=== PATIENT | male | born 1965 | race Caucasian/White ===

== ENCOUNTER 2020-09-21 03:58 | Emergency (ER) | payer OTHER ==
[~2020-09-21] VITALS: Ht 185.4 cm; Wt 120.0 kg
[~2020-09-21 03:58] MED LIST: ALBU0.63 NEB; ASPI-496 PO; LORA10CA PO; OLOP5DRO OP; TADA5TAB2 PO
--- NOTE | 2020-09-21 04:27 | NUR ---
TASK RN: PT CAME INTO ED THIS EVENING AFTER WAKING UP AND FEELING SHORT OF BREATH, REPORTS IT IS DIFFICULT TO TAKE A DEEP INHALATION. PT RESP RATE WITHIN NORMAL LIMITS. SPO2 STABLE. 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 PT WAS TESTED FOR COVID AND WAS NEGATIVE 6-7 DAYS AGO. PT REPORTS FATIGUE AND BODY ACHES. PT PLACED ON SPO2/BP/ECG MONITORING. TM
--- NOTE | 2020-09-21 04:40 | NUR ---
patient resting in bed in NAD. call carrillo in reach. Turner FANG at bedside for assessment. Covid swab performed by PA and sent to lab. will continue to monitor.
--- NOTE | 2020-09-21 05:06 | NUR ---
RN requested UA from patient and patient states "i went right before I came. I need more water and then I can" as patient finishes bottle of water at bedside brought from home. call carrillo in reach. safety maintained. will continue to monitor.
[2020-09-21 05:07] LABS: BASOPHILS % (AUTO) 1 % (0-1); EOSINOPHILS % (AUTO) 1 % (1-7); LYMPHOCYTES % (AUTO) 15 % (22-44); MEAN CORPUSCULAR HEMOGLOBIN 27.7 pg (27.5-34.5); MEAN CORPUSCULAR HGB CONC 34.4 g/dL (33.2-36.2); MEAN PLATELET VOLUME 8.1 fL (7.4-10.4); MONOCYTES % (AUTO) 8 % (2-9); NEUTROPHILS % (AUTO) 75 % (42-75); PLATELET COUNT 290 x10^3/uL (130-400); RED BLOOD COUNT 5.53 x10^6/uL (4.38-5.82); RED CELL DISTRIBUTION WIDTH 12.8 % (9.4-14.8)
[2020-09-21 05:09] LABS: MD NO
[2020-09-21 05:12] LABS: ALANINE AMINOTRANSFERASE 19 U/L (12-78); ALBUMIN 3.7 g/dL (3.4-5.0); ANION GAP 10 mmol/L (5-15); CALCIUM 8.7 mg/dL (8.5-10.1); CHLORIDE 106 mmol/L (98-107); CREATININE 1.35 mg/dL (0.7-1.3)
[2020-09-21 05:14] LABS: ALKALINE PHOSPHATASE 83 U/L (45-117); BILIRUBIN,TOTAL 0.5 mg/dL (0.2-1.0); TOTAL PROTEIN 7.4 g/dL (6.4-8.2)
--- NOTE | 2020-09-21 05:19 | NUR ---
additional water given to patient. will re-eval and request UA shortly
--- NOTE | 2020-09-21 05:46 | NUR ---
UA obtained and UA collected and walked to lab by this RN. steady gait to bathroom. mild SOB with return to rest in [facility]. call carrillo in reach. safety maintained
[2020-09-21 05:59] LABS: MICROSCOPIC NOT IND
--- NOTE | 2020-09-21 06:26 | NUR ---
waiting for Ddimer. this lab is delayed as well to result and be added on to already drawn labs. i called lab and spoke with Nubia. lab was ordered 1 hour ago at 0525. she found sample and will run it at this time.
--- NOTE | 2020-09-21 07:05 | NUR ---
REPOTR GIVEN TO IBIS MACIAS
--- NOTE | 2020-09-21 07:25 | NUR ---
PT OFF THE FLOOR FOR CTA
--- NOTE | 2020-09-21 07:34 | NUR ---
PT BACK IN ROOM FROM CTA
[2020-09-21] MEDS ORDERED: OMNIPAQUE 350 MG/ML, 100ML BOTTLE ONE (07:41)
[2020-09-21 08:30] VITALS: BP 152/105
--- NOTE | 2020-09-21 08:38 | NUR ---
PT REC'VD DISCHARGE ISTRUCTIONS AND EDUCATION. PT HAD NO FURTHER QUESTIONS. PT AMBULATED TO DC AREA, STEADY GAIT.
== END 2020-09-21 08:41 | disposition home or self-care (01) ==
LOC: ED 04:29
DX: C43.9 Malignant melanoma of skin, unspecified (principal); Z20.822 Contact with and (suspected) exposure to COVID-19; R05 Cough; R10.9 Unspecified abdominal pain; R06.00 Dyspnea, unspecified; R06.02 Shortness of breath; M79.10 Myalgia, unspecified site
CPT/HCPCS: 71045; 71275; 80053; 81003; 83690; 85025; 85379; 87635; 93005; 99285; Q9967

== ENCOUNTER → 2020-10-05 | Outpatient (CLI) | payer OTHER | END | disposition home or self-care (01) | LOC: PETCFH 07:17 | PROVIDERS: ATTEND Internal Medicine Hematology & Oncology | DX: C78.00 Secondary malignant neoplasm of unspecified lung (principal); C43.61 Malignant melanoma of right upper limb, including shoulder; R59.0 Localized enlarged lymph nodes; C79.89 Secondary malignant neoplasm of other specified sites | CPT/HCPCS: 78816; A9552 ==